=== PATIENT | female | born 1975 | race Two or more races ===

== ENCOUNTER 2021-10-12 14:48 | Outpatient (CLI) | payer OTHER ==
[~2021-10-12 14:48] MED LIST: AVELOX ABC PAC400 MG PO; TESSALON200 MG PO; TUSSI PRES-B L120 M1 PO
== END 2021-10-12 14:55 | disposition home or self-care (01) ==
LOC: RAD 14:48
PROVIDERS: ATTEND Internal Medicine Pulmonary Disease
DX: J18.9 Pneumonia, unspecified organism (principal); R05.1 Acute cough

== ENCOUNTER 2021-10-19 12:31 | Outpatient (CLI) | payer OTHER | END 2021-10-19 12:44 | disposition home or self-care (01) | LOC: SONOGRAMA 12:31 | PROVIDERS: ATTEND Obstetrics & Gynecology | DX: N60.11 Diffuse cystic mastopathy of right breast (principal); N60.12 Diffuse cystic mastopathy of left breast ==

== ENCOUNTER 2022-02-17 10:37 | Outpatient (CLI) | payer OTHER ==
[~2022-02-17 10:37] MED LIST changes: +LEXAPRO20 MG PO
== END 2022-02-17 10:38 | disposition home or self-care (01) ==
LOC: MAMO-SONO 10:37
PROVIDERS: ATTEND Obstetrics & Gynecology
DX: N60.11 Diffuse cystic mastopathy of right breast (principal); N60.12 Diffuse cystic mastopathy of left breast

== ENCOUNTER 2022-05-14 14:32 | Emergency (ER) | payer OTHER ==
[~2022-05-14] VITALS: Ht 175.3 cm; Wt 73.9 kg
[2022-05-14] MEDS ORDERED: LEXAPRO5 MG PO (14:59)
== END 2022-05-15 03:36 | disposition home or self-care (01) ==
LOC: ER 14:32
DX: A49.3 Mycoplasma infection, unspecified site (principal); Z20.822 Contact with and (suspected) exposure to COVID-19

== ENCOUNTER 2023-08-17 08:56 | Outpatient (CLI) | payer OTHER ==
[~2023-08-17 08:56] MED LIST changes: +LEXAPRO5 MG PO
== END 2023-08-17 09:06 | disposition home or self-care (01) ==
LOC: RAD 08:56
DX: J06.9 Acute upper respiratory infection, unspecified (principal); R05.9 Cough, unspecified

== ENCOUNTER → 2023-08-17 09:37 | Outpatient (CLI) | payer OTHER ==
[2023-08-17 10:33] LABS: HEMATOCRIT 37.8 % (36.0-45.00); HEMOGLOBIN 12.9 g/dL (12.0-15.00); MEAN CELL VOLUME 82.8 fL (80.00-100.00); MEAN CORPUSCULAR HEMOGLOBIN 28.1 pg (27.00-32.0); PLATELET COUNT 188 K/uL (150-450); RED BLOOD COUNT 4.57 M/uL (4.00-6.00); RED CELL DISTRIBUTION WIDTH 13.6 % (11.5-14.5)
[2023-08-17 11:00] LABS: MYCOPLASMA PNEUMONIAE IGM REACTIVE (NO REACTIVE)
== END | disposition home or self-care (01) ==
LOC: LAB 09:37
PROVIDERS: ATTEND Internal Medicine Pulmonary Disease
DX: J06.9 Acute upper respiratory infection, unspecified (principal); R05.1 Acute cough; A49.3 Mycoplasma infection, unspecified site; Z20.822 Contact with and (suspected) exposure to COVID-19

== ENCOUNTER 2025-05-08 10:41 | Outpatient (CLI) | payer OTHER ==
[2025-05-08 11:19] LABS: BASO % 0.5 % (0.1-1.2); EOS # 0.05 (0.04-0.54); EOS % 1.2 % (0.7-7.0); LYMPH # 1.28 (1.18-3.74); LYMPH % 31.9 % (19.3-53.1); MEAN PLATELET VOLUME 10.90 fl (9.4-12.4); MONO # 0.32 (0.24-0.82); MONO % 8.0 % (4.7-12.5); NEUT # 2.34 (1.56-6.13); NEUT % 58.4 % (34.0-71.1); RED CELL DISTRIBUTION WIDTH 12.8 % (11.6-14.4)
[2025-05-08 12:35] LABS: ALT/SGPT 25.0 U/L (12-78); AST/SGOT 19.0 U/L (15-37); BILIRUBIN TOTAL 0.53 mg/dL (0.3-1.2); BUN CREA RATIO 15.0 (7.0-25.0); CREATININE SERUM 0.66 mg/dL (0.55-1.02); FE 95.0 ug/dl (50-170); GFR 95.19; GLOBULINA 3.0 G/DL (2.4-3.5); GLUCOSE FASTING 82.0 mg/dL (65-100); LDH 169.0 U/L (84-246); OSMOLALITY SERUM 283.0 MOSM/KG (275-295); T4 FREE 0.78 NG/ML (0.76-1.46); TSH 1.75 uIU/mL (0.358-3.74)
[2025-05-09 10:42] LABS: FOLIC ACID 16.84 ng/ml (4.78-20)
[2025-05-10 09:08] LABS: ANTI THYROID PEROXIDASE < 9 IU/mL (0-34)
== END 2025-05-08 10:50 | disposition home or self-care (01) ==
LOC: LAB 10:41
PROVIDERS: ATTEND Internal Medicine Hematology & Oncology
DX: D50.8 Other iron deficiency anemias (principal); I10 Essential (primary) hypertension; R74.02 Elevation of levels of lactic acid dehydrogenase [LDH]; K76.89 Other specified diseases of liver; R79.9 Abnormal finding of blood chemistry, unspecified; E03.8 Other specified hypothyroidism; D51.0 Vitamin B12 deficiency anemia due to intrinsic factor deficiency; E06.3 Autoimmune thyroiditis; D72.818 Other decreased white blood cell count; F41.3 Other mixed anxiety disorders